=== PATIENT | male | born 1985 | race African-American/Black ===

== ENCOUNTER 2021-04-04 11:12 | Inpatient (IN) | payer OTHER ==
[~2021-04-04] VITALS: Ht 177.8 cm; Wt 109.1 kg
[2021-04-04 12:56] LABS: BASOPHILS % (AUTO) 0.3 % (0.0-2.0); EOSINOPHILS % (AUTO) 4.9 % (1.0-6.0); HEMATOCRIT 48.1 % (41-53); HEMOGLOBIN 16.6 g/dL (13.5-17.5); LYMPHOCYTES # (AUTO) 0.6 K/uL (1.0-4.8); LYMPHOCYTES % (AUTO) 6.6 % (22.0-44.0); MEAN CORPUSCULAR HEMOGLOBIN 30.6 pg (26.0-34.0); MEAN CORPUSCULAR HGB CONC 34.4 G/dL (31.0-37.0); MEAN CORPUSCULAR VOLUME 89 fL (80-100); MONOCYTES # (AUTO) 0.8 K/uL (0.1-1.0); MONOCYTES % (AUTO) 8.3 % (2.0-9.0); NEUTROPHILS # (AUTO) 7.6 K/uL (1.8-7.7); NEUTROPHILS % (AUTO) 79.9 % (40.0-70.0); PLATELET COUNT (AUTO) 413 K/uL (150-450); RED BLOOD CELL COUNT(AUTO) 5.41 MIL/uL (4.50-5.90); RED CELL DISTRIBUTION WIDTH 12.2 % (11.5-14.5)
[2021-04-04 13:02] LABS: ANION GAP 5 mmol/L (8-16); CALCIUM, TOTAL 8.9 mg/dL (8.8-10.5); CARBON DIOXIDE 29 mmol/L (22-29); CHLORIDE 103 mmol/L (98-107); CREATININE 1.17 mg/dL (0.60-1.30); GLOMERULAR FILTR. RATE CALC > 60 mL/min (>60); GLUCOSE,RANDOM 90 mg/dL (70-110); POTASSIUM 3.3 mmol/L (3.5-5.1); SODIUM SERUM 137 mmol/L (136-145); UREA NITROGEN, BLOOD 9 mg/dL (7-18)
[2021-04-04 13:08] LABS: ALANINE AMINOTRANSFERASE 15 U/L (12-78); ALBUMIN 3.8 g/dL (3.4-5.0); ALKALINE PHOSPHATASE 82 U/L (46-116); ASPARTATE AMINOTRANSFERASE 14 U/L (15-37); BILIRUBIN,TOTAL 0.8 mg/dL (0.1-1.0); C-REACTIVE PROTEIN QUANT 5.48 mg/dL (0.00-0.30); TOTAL PROTEIN, SERUM 8.1 g/dL (6.4-8.2)
[2021-04-04 13:18] LABS: LACTIC ACID 0.7 mmol/L (0.4-2.0)
[2021-04-04] MEDS ORDERED: NYSTATIN 500,000 UNITS/5 ML SUSPENSION UDCUP PO ONE (14:00)
[2021-04-04 14:06] LABS: ERYTHROCYTE SEDIMENTATION RATE 22 MM/HR (0-15)
[2021-04-04 14:46] LABS: COVID AG,FIA SOURCE NASAL SWAB
[2021-04-04] MEDS ORDERED: MAGNESIUM HYDROXIDE SUSPENSION 30 ML UDCUP PO PRN (15:45)
[2021-04-04] MEDS ORDERED: ONDANSETRON HCL 4 MG/2 ML VIAL IVP PRN (15:45)
[2021-04-04] MEDS ORDERED: HYDROCODONE/ACETAMINOPHEN 5-325 MG TABLET PO PRN (15:45)
[2021-04-04] MEDS ORDERED: MORPHINE SULFATE 2 MG/ML SYRINGE IVP PRN (15:45)
[2021-04-04] MEDS ORDERED: ZOLPIDEM TARTRATE 5 MG TABLET PO PRN (15:45)
[2021-04-04] MEDS ORDERED: BISACODYL 10 MG RECTAL RECTAL SUPPOSITORY PR PRN (15:45)
[2021-04-04 16:03] VITALS: BP 127/89
[2021-04-04] MEDS: HEPARIN SODIUM,PORCINE 5,000 UNITS/ML VIAL SQ SCH ×2 (16:07→23:14)
[2021-04-04] MEDS: ACETAMINOPHEN 325 MG TABLET PO PRN (16:07)
[2021-04-04] MEDS: ACYCLOVIR 700 MG in DEXTROSE 5%-WATER 100 ML IV SCH (17:44)
[2021-04-04] MEDS: FLUCONAZOLE 200 MG TABLET PO SCH (17:44)
[2021-04-04] MEDS: MAALOX/LIDOCAINE/NYSTATIN SUSP 5 ML ORAL.SYG MM SCH ×2 (17:50→21:04)
[2021-04-04 19:30] VITALS: BP 118/74
[2021-04-04] MEDS: DOCUSATE SODIUM 100 MG CAPSULE PO SCH (21:05)
[2021-04-05] MEDS: ACYCLOVIR 700 MG in DEXTROSE 5%-WATER 100 ML IV SCH ×3 (00:05→18:05)
[2021-04-05 01:56] LABS: MONOTEST NEGATIVE (NEGATIVE); RAPID PLASMA REAGIN NONREACTIVE (NONREACTIVE)
[2021-04-05 04:30] VITALS: BP 123/71
[2021-04-05 06:07] LABS: HIV 1-2 SCREEN 4TH GEN W/RFLX Non Reactive (Non Reactive)
[2021-04-05] MEDS: HEPARIN SODIUM,PORCINE 5,000 UNITS/ML VIAL SQ SCH ×2 (07:58→16:50)
[2021-04-05] MEDS: DOCUSATE SODIUM 100 MG CAPSULE PO SCH ×2 (07:58→20:46)
[2021-04-05] MEDS: PANTOPRAZOLE SODIUM 40 MG DR TABLET PO SCH (07:58)
[2021-04-05] MEDS: MAALOX/LIDOCAINE/NYSTATIN SUSP 5 ML ORAL.SYG MM SCH ×3 (07:58→20:46)
[2021-04-05] MEDS: FLUCONAZOLE 200 MG TABLET PO SCH (08:02)
[2021-04-05 08:42] VITALS: BP 116/69
[2021-04-05 08:54] LABS: BASOPHILS % (AUTO) 0.3 % (0.0-2.0); EOSINOPHILS % (AUTO) 4.4 % (1.0-6.0); HEMATOCRIT 43.1 % (41-53); LYMPHOCYTES # (AUTO) 1.1 K/uL (1.0-4.8); MEAN CORPUSCULAR HEMOGLOBIN 31.1 pg (26.0-34.0); MEAN CORPUSCULAR HGB CONC 34.7 G/dL (31.0-37.0); MEAN CORPUSCULAR VOLUME 90 fL (80-100); MONOCYTES # (AUTO) 0.7 K/uL (0.1-1.0); MONOCYTES % (AUTO) 9.3 % (2.0-9.0); NEUTROPHILS # (AUTO) 5.2 K/uL (1.8-7.7); PLATELET COUNT (AUTO) 414 K/uL (150-450); RED BLOOD CELL COUNT(AUTO) 4.82 MIL/uL (4.50-5.90); RED CELL DISTRIBUTION WIDTH 12.2 % (11.5-14.5)
[2021-04-05] MEDS: ACETAMINOPHEN 325 MG TABLET PO PRN ×3 (09:08→21:27)
[2021-04-05 09:46] LABS: ALANINE AMINOTRANSFERASE 12 U/L (12-78); ALBUMIN 3.3 g/dL (3.4-5.0); ALKALINE PHOSPHATASE 73 U/L (46-116); ANION GAP 8 mmol/L (8-16); ASPARTATE AMINOTRANSFERASE 11 U/L (15-37); BILIRUBIN,TOTAL 0.9 mg/dL (0.1-1.0); C-REACTIVE PROTEIN QUANT 8.53 mg/dL (0.00-0.30); CALCIUM, TOTAL 8.3 mg/dL (8.8-10.5); CARBON DIOXIDE 28 mmol/L (22-29); CHLORIDE 101 mmol/L (98-107); CREATININE 1.15 mg/dL (0.60-1.30); FERRITIN 304 ng/mL (26-388); GLOMERULAR FILTR. RATE CALC > 60 mL/min (>60); GLUCOSE,RANDOM 116 mg/dL (70-110); LACTATE DEHYDROGENASE 337 U/L (85-227); SODIUM SERUM 137 mmol/L (136-145); TOTAL PROTEIN, SERUM 7.4 g/dL (6.4-8.2); UREA NITROGEN, BLOOD 9 mg/dL (7-18)
[2021-04-05 09:49] LABS: POTASSIUM 2.9 mmol/L (3.5-5.1)
[2021-04-05 09:55] LABS: PROTHROMBIN TIME 10.9 SEC (9.4-11.6)
[2021-04-05] MEDS: POTASSIUM CHL 10 MEQ/WATER 50 ML IV PRN ×4 (10:08→12:40)
[2021-04-05 10:16] LABS: D-DIMER 1.23 mg/L FEU (0.00-0.50)
[2021-04-05 16:34] VITALS: BP 117/68
[2021-04-05] MEDS: PredniSONE 20 MG TABLET PO SCH (17:00)
[2021-04-05 20:13] VITALS: BP 106/64
[2021-04-05] MEDS: DOXYCYCLINE HYCLATE 100 MG TABLET PO SCH (20:46)
[2021-04-05] MEDS ORDERED: CLOBETASOL 0.05% 15 GM OINTMENT TP SCH (21:00)
[2021-04-06] MEDS: HEPARIN SODIUM,PORCINE 5,000 UNITS/ML VIAL SQ SCH ×4 (00:30→23:30)
[2021-04-06] MEDS: ACYCLOVIR 700 MG in DEXTROSE 5%-WATER 100 ML IV SCH ×3 (00:30→16:37)
[2021-04-06 04:00] VITALS: BP 122/73
[2021-04-06] MEDS ORDERED: SODIUM CHLORIDE 0.9% 500 ML IV ONE (04:46)
[2021-04-06 08:00] VITALS: BP 130/83
[2021-04-06] MEDS: MAALOX/LIDOCAINE/NYSTATIN SUSP 5 ML ORAL.SYG MM SCH ×4 (08:56→20:45)
[2021-04-06] MEDS: FLUCONAZOLE 200 MG TABLET PO SCH (08:57)
[2021-04-06] MEDS: DOXYCYCLINE HYCLATE 100 MG TABLET PO SCH ×2 (08:57→20:45)
[2021-04-06] MEDS: PANTOPRAZOLE SODIUM 40 MG DR TABLET PO SCH (08:57)
[2021-04-06] MEDS: PredniSONE 20 MG TABLET PO SCH (08:57)
[2021-04-06] MEDS: DOCUSATE SODIUM 100 MG CAPSULE PO SCH ×2 (08:57→21:00)
[2021-04-06] MEDS: POTASSIUM CHLORIDE 20 MEQ ER TABLET PO PRN (17:43)
[2021-04-06] MEDS: CARBOXYMETHYLCELLULOSE SODIUM 0.4 ML OPHTHALMIC SOLUTION [PF] OU SCH ×2 (17:43→23:30)
[2021-04-06] MEDS ORDERED: HYPROMELLOSE 0.5% 15 ML OPHTHALMIC SOLUTION OU SCH (18:00)
[2021-04-06 20:23] VITALS: BP 130/78
[2021-04-06] MEDS: ACETAMINOPHEN 325 MG TABLET PO PRN (20:45)
[2021-04-07] MEDS: ACYCLOVIR 700 MG in DEXTROSE 5%-WATER 100 ML IV SCH ×3 (01:27→16:26)
[2021-04-07 05:17] VITALS: BP 113/79
[2021-04-07] MEDS: CARBOXYMETHYLCELLULOSE SODIUM 0.4 ML OPHTHALMIC SOLUTION [PF] OU SCH ×5 (06:00→20:50)
[2021-04-07 07:06] LABS: HERPES SIMPLEX VIRUS-1 BY PCR Negative (Negative); HERPES SIMPLEX VIRUS-2 BY PCR Negative (Negative)
[2021-04-07] MEDS: MAALOX/LIDOCAINE/NYSTATIN SUSP 5 ML ORAL.SYG MM SCH ×4 (08:54→20:50)
[2021-04-07] MEDS: HEPARIN SODIUM,PORCINE 5,000 UNITS/ML VIAL SQ SCH ×2 (08:54→16:26)
[2021-04-07] MEDS: FLUCONAZOLE 200 MG TABLET PO SCH (08:54)
[2021-04-07] MEDS: PredniSONE 20 MG TABLET PO SCH (08:55)
[2021-04-07] MEDS: DOCUSATE SODIUM 100 MG CAPSULE PO SCH ×2 (08:55→20:50)
[2021-04-07] MEDS: DOXYCYCLINE HYCLATE 100 MG TABLET PO SCH ×2 (08:55→20:50)
[2021-04-07] MEDS: CLOBETASOL 0.05% 60 GM OINTMENT TP SCH ×2 (08:55→20:50)
[2021-04-07] MEDS: PANTOPRAZOLE SODIUM 40 MG DR TABLET PO SCH (09:02)
[2021-04-07 09:04] VITALS: BP 122/76
[2021-04-07 15:46] VITALS: BP 130/82
[2021-04-07] MEDS ORDERED: SODIUM CHLORIDE 0.9% 250 ML IV ONE (16:53)
[2021-04-07 20:19] VITALS: BP 122/76
[2021-04-08] MEDS: ACYCLOVIR 700 MG in DEXTROSE 5%-WATER 100 ML IV SCH ×3 (00:31→17:49)
[2021-04-08] MEDS: HEPARIN SODIUM,PORCINE 5,000 UNITS/ML VIAL SQ SCH ×5 (00:31→23:38)
[2021-04-08 04:44] VITALS: BP 121/75
[2021-04-08] MEDS ORDERED: SODIUM CHLORIDE 0.9% 500 ML IV ONE ×2 (06:01→06:15)
[2021-04-08] MEDS: CARBOXYMETHYLCELLULOSE SODIUM 0.4 ML OPHTHALMIC SOLUTION [PF] OU SCH ×5 (06:17→22:04)
[2021-04-08 07:39] LABS: ANION GAP 6 mmol/L (8-16); C-REACTIVE PROTEIN QUANT 3.05 mg/dL (0.00-0.30); CALCIUM, TOTAL 8.8 mg/dL (8.8-10.5); CARBON DIOXIDE 30 mmol/L (22-29); CHLORIDE 106 mmol/L (98-107); CREATININE 1.13 mg/dL (0.60-1.30); GLOMERULAR FILTR. RATE CALC > 60 mL/min (>60); GLUCOSE,RANDOM 101 mg/dL (70-110); SODIUM SERUM 142 mmol/L (136-145); UREA NITROGEN, BLOOD 11 mg/dL (7-18)
[2021-04-08] MEDS: MAALOX/LIDOCAINE/NYSTATIN SUSP 5 ML ORAL.SYG MM SCH ×4 (08:53→20:35)
[2021-04-08] MEDS: CLOBETASOL 0.05% 60 GM OINTMENT TP SCH ×2 (08:55→20:35)
[2021-04-08] MEDS: PredniSONE 20 MG TABLET PO SCH (08:55)
[2021-04-08] MEDS: DOCUSATE SODIUM 100 MG CAPSULE PO SCH ×2 (08:56→20:35)
[2021-04-08] MEDS: FLUCONAZOLE 200 MG TABLET PO SCH (08:56)
[2021-04-08] MEDS: PANTOPRAZOLE SODIUM 40 MG DR TABLET PO SCH (08:56)
[2021-04-08] MEDS: DOXYCYCLINE HYCLATE 100 MG TABLET PO SCH ×2 (08:56→20:35)
[2021-04-08] MEDS: POTASSIUM CHLORIDE 20 MEQ ER TABLET PO PRN (09:21)
[2021-04-08 18:00] VITALS: BP 119/74
[2021-04-08 19:40] VITALS: BP 130/74
[2021-04-08] MEDS ORDERED: BETAMETHASONE 0.05% TP SCH (21:00)
[2021-04-09] MEDS: ACYCLOVIR 700 MG in DEXTROSE 5%-WATER 100 ML IV SCH ×3 (01:48→16:53)
[2021-04-09 04:05] VITALS: BP 126/79
[2021-04-09 05:06] LABS: HSV 1 TYPE SPECIFIC IGG <0.91 index (0.00-0.90)
[2021-04-09] MEDS: CARBOXYMETHYLCELLULOSE SODIUM 0.4 ML OPHTHALMIC SOLUTION [PF] OU SCH ×5 (06:14→21:26)
[2021-04-09 08:11] VITALS: BP 124/79
[2021-04-09] MEDS: PredniSONE 20 MG TABLET PO SCH (08:40)
[2021-04-09] MEDS: DOCUSATE SODIUM 100 MG CAPSULE PO SCH ×2 (08:40→21:26)
[2021-04-09] MEDS: DOXYCYCLINE HYCLATE 100 MG TABLET PO SCH ×2 (08:41→21:26)
[2021-04-09] MEDS: FLUCONAZOLE 200 MG TABLET PO SCH (08:41)
[2021-04-09] MEDS: PANTOPRAZOLE SODIUM 40 MG DR TABLET PO SCH (08:41)
[2021-04-09] MEDS: HEPARIN SODIUM,PORCINE 5,000 UNITS/ML VIAL SQ SCH ×2 (08:41→16:53)
[2021-04-09] MEDS: CLOBETASOL 0.05% 60 GM OINTMENT TP SCH ×2 (08:42→21:26)
[2021-04-09] MEDS: MAALOX/LIDOCAINE/NYSTATIN SUSP 5 ML ORAL.SYG MM SCH ×4 (08:42→21:27)
[2021-04-09] MEDS ORDERED: ALBUTEROL SULFATE 2.5 MG/0.5 ML NEB SOLUTION NEB PRN (15:15)
[2021-04-09 16:16] VITALS: BP 127/81
[2021-04-09 20:31] VITALS: BP 130/85
[2021-04-10] MEDS: ACYCLOVIR 700 MG in DEXTROSE 5%-WATER 100 ML IV SCH ×3 (00:33→17:34)
[2021-04-10 00:39] VITALS: BP 118/75
[2021-04-10 05:33] VITALS: BP 128/85
[2021-04-10] MEDS: CARBOXYMETHYLCELLULOSE SODIUM 0.4 ML OPHTHALMIC SOLUTION [PF] OU SCH ×5 (05:37→21:13)
[2021-04-10 07:57] VITALS: BP 126/83
[2021-04-10] MEDS: HEPARIN SODIUM,PORCINE 5,000 UNITS/ML VIAL SQ SCH ×3 (08:00→16:00)
[2021-04-10] MEDS: MAALOX/LIDOCAINE/NYSTATIN SUSP 5 ML ORAL.SYG MM SCH ×4 (09:37→21:13)
[2021-04-10] MEDS: FLUCONAZOLE 200 MG TABLET PO SCH (09:38)
[2021-04-10] MEDS: PredniSONE 20 MG TABLET PO SCH (09:38)
[2021-04-10] MEDS: DOCUSATE SODIUM 100 MG CAPSULE PO SCH ×2 (09:38→21:13)
[2021-04-10] MEDS: CLOBETASOL 0.05% 60 GM OINTMENT TP SCH ×2 (09:39→21:00)
[2021-04-10] MEDS: PANTOPRAZOLE SODIUM 40 MG DR TABLET PO SCH (09:39)
[2021-04-10] MEDS: DOXYCYCLINE HYCLATE 100 MG TABLET PO SCH ×2 (09:39→21:13)
[2021-04-10] MEDS ORDERED: SODIUM CHLORIDE 0.9% 500 ML IV ONE (17:35)
[2021-04-10] MEDS ORDERED: BENZOCAINE/MENTHOL LOZENGE PO PRN (18:15)
[2021-04-10] MEDS: CLOTRIMAZOLE 10 MG TROCHE PO SCH (21:13)
[2021-04-11] MEDS: ACYCLOVIR 700 MG in DEXTROSE 5%-WATER 100 ML IV SCH ×3 (00:01→16:43)
[2021-04-11] MEDS: HEPARIN SODIUM,PORCINE 5,000 UNITS/ML VIAL SQ SCH ×3 (00:03→16:43)
[2021-04-11] MEDS: CARBOXYMETHYLCELLULOSE SODIUM 0.4 ML OPHTHALMIC SOLUTION [PF] OU SCH ×5 (06:08→21:54)
[2021-04-11] MEDS: CLOTRIMAZOLE 10 MG TROCHE PO SCH ×5 (06:08→21:53)
[2021-04-11 07:59] VITALS: BP 130/80
[2021-04-11] MEDS: MAALOX/LIDOCAINE/NYSTATIN SUSP 5 ML ORAL.SYG MM SCH ×4 (08:27→20:27)
[2021-04-11] MEDS: DOXYCYCLINE HYCLATE 100 MG TABLET PO SCH ×2 (08:27→20:28)
[2021-04-11] MEDS: DOCUSATE SODIUM 100 MG CAPSULE PO SCH ×2 (08:27→20:28)
[2021-04-11] MEDS: PANTOPRAZOLE SODIUM 40 MG DR TABLET PO SCH (08:27)
[2021-04-11] MEDS: PredniSONE 20 MG TABLET PO SCH (08:28)
[2021-04-11] MEDS: CLOBETASOL 0.05% 60 GM OINTMENT TP SCH ×2 (09:02→20:30)
[2021-04-11] MEDS: FLUCONAZOLE 200 MG TABLET PO SCH (09:54)
[2021-04-11 11:46] VITALS: BP 142/82
[2021-04-11 16:09] VITALS: BP 119/68
[2021-04-11 20:28] VITALS: BP 105/65
[2021-04-12] MEDS: ACYCLOVIR 700 MG in DEXTROSE 5%-WATER 100 ML IV SCH ×3 (00:22→16:57)
[2021-04-12] MEDS: HEPARIN SODIUM,PORCINE 5,000 UNITS/ML VIAL SQ SCH ×3 (00:22→16:57)
[2021-04-12 01:19] VITALS: BP 131/84
[2021-04-12 04:55] VITALS: BP 133/78
[2021-04-12] MEDS: CLOTRIMAZOLE 10 MG TROCHE PO SCH ×5 (05:53→22:37)
[2021-04-12] MEDS: CARBOXYMETHYLCELLULOSE SODIUM 0.4 ML OPHTHALMIC SOLUTION [PF] OU SCH ×5 (05:54→22:37)
[2021-04-12] MEDS: DOCUSATE SODIUM 100 MG CAPSULE PO SCH ×3 (08:20→21:00)
[2021-04-12] MEDS: PredniSONE 20 MG TABLET PO SCH (08:20)
[2021-04-12] MEDS: FLUCONAZOLE 200 MG TABLET PO SCH (08:20)
[2021-04-12] MEDS: DOXYCYCLINE HYCLATE 100 MG TABLET PO SCH (08:20)
[2021-04-12] MEDS: PANTOPRAZOLE SODIUM 40 MG DR TABLET PO SCH (08:20)
[2021-04-12] MEDS: MAALOX/LIDOCAINE/NYSTATIN SUSP 5 ML ORAL.SYG MM SCH ×4 (08:21→20:14)
[2021-04-12 08:25] VITALS: BP 125/79
[2021-04-12] MEDS: CLOBETASOL 0.05% 60 GM OINTMENT TP SCH ×2 (11:25→20:14)
[2021-04-12 16:10] VITALS: BP 123/81
[2021-04-12] MEDS: TRIAMCINOLONE 0.1% DT SCH ×2 (16:58→20:15)
[2021-04-12] MEDS: DENTAL PASTE DT SCH ×2 (16:58→20:15)
[2021-04-12] MEDS ORDERED: REMDESIVIR 200 MG in SODIUM CHLORIDE 0.9% 250 ML IV ONE (18:00)
[2021-04-12] MEDS ORDERED: SODIUM CHLORIDE 0.9% 500 ML IV ONE (18:27)
[2021-04-12 19:25] VITALS: BP 124/80
[2021-04-13] MEDS: HEPARIN SODIUM,PORCINE 5,000 UNITS/ML VIAL SQ SCH ×3 (00:23→16:00)
[2021-04-13] MEDS: ACYCLOVIR 700 MG in DEXTROSE 5%-WATER 100 ML IV SCH ×3 (00:23→19:35)
[2021-04-13 04:25] VITALS: BP 133/88
[2021-04-13] MEDS: CLOTRIMAZOLE 10 MG TROCHE PO SCH ×5 (05:45→22:12)
[2021-04-13] MEDS: CARBOXYMETHYLCELLULOSE SODIUM 0.4 ML OPHTHALMIC SOLUTION [PF] OU SCH ×5 (05:46→22:12)
[2021-04-13 07:11] LABS: ALANINE AMINOTRANSFERASE 19 U/L (12-78); ALBUMIN 2.7 g/dL (3.4-5.0); ALKALINE PHOSPHATASE 99 U/L (46-116); ANION GAP 6 mmol/L (8-16); ASPARTATE AMINOTRANSFERASE 15 U/L (15-37); BILIRUBIN,TOTAL 0.4 mg/dL (0.1-1.0); C-REACTIVE PROTEIN QUANT 0.43 mg/dL (0.00-0.30); CALCIUM, TOTAL 8.7 mg/dL (8.8-10.5); CARBON DIOXIDE 32 mmol/L (22-29); CHLORIDE 106 mmol/L (98-107); CREATININE 1.18 mg/dL (0.60-1.30); FERRITIN 266 ng/mL (26-388); GLOMERULAR FILTR. RATE CALC > 60 mL/min (>60); GLUCOSE,RANDOM 110 mg/dL (70-110); POTASSIUM 3.6 mmol/L (3.5-5.1); SODIUM SERUM 144 mmol/L (136-145); TOTAL PROTEIN, SERUM 6.4 g/dL (6.4-8.2); UREA NITROGEN, BLOOD 14 mg/dL (7-18)
[2021-04-13 08:29] VITALS: BP 141/87
[2021-04-13] MEDS: CLOBETASOL 0.05% 60 GM OINTMENT TP SCH ×2 (09:00→20:44)
[2021-04-13] MEDS: MAALOX/LIDOCAINE/NYSTATIN SUSP 5 ML ORAL.SYG MM SCH ×4 (10:06→20:42)
[2021-04-13] MEDS: PredniSONE 10 MG TABLET PO SCH (10:07)
[2021-04-13] MEDS: FLUCONAZOLE 200 MG TABLET PO SCH (10:07)
[2021-04-13] MEDS: DOCUSATE SODIUM 100 MG CAPSULE PO SCH ×2 (10:07→20:42)
[2021-04-13] MEDS: PANTOPRAZOLE SODIUM 40 MG DR TABLET PO SCH (10:07)
[2021-04-13 16:08] VITALS: BP 135/85
[2021-04-13] MEDS: TRIAMCINOLONE 0.1% DT SCH (20:44)
[2021-04-13] MEDS: DENTAL PASTE DT SCH (20:44)
[2021-04-13 20:45] VITALS: BP 121/66
[2021-04-13] MEDS: REMDESIVIR 100 MG in SODIUM CHLORIDE 0.9% 250 ML IV SCH (20:45)
[2021-04-14] MEDS: HEPARIN SODIUM,PORCINE 5,000 UNITS/ML VIAL SQ SCH ×3 (00:34→17:35)
[2021-04-14] MEDS: ACYCLOVIR 700 MG in DEXTROSE 5%-WATER 100 ML IV SCH ×3 (02:54→19:18)
[2021-04-14 05:26] VITALS: BP 141/85
[2021-04-14] MEDS: CARBOXYMETHYLCELLULOSE SODIUM 0.4 ML OPHTHALMIC SOLUTION [PF] OU SCH ×2 (05:45→09:43)
[2021-04-14] MEDS: CLOTRIMAZOLE 10 MG TROCHE PO SCH ×5 (05:45→22:06)
[2021-04-14 08:18] VITALS: BP 112/65
[2021-04-14] MEDS: TRIAMCINOLONE 0.1% DT SCH ×3 (09:00→20:54)
[2021-04-14] MEDS: DENTAL PASTE DT SCH ×3 (09:00→20:54)
[2021-04-14] MEDS: CLOBETASOL 0.05% 60 GM OINTMENT TP SCH ×2 (09:00→20:54)
[2021-04-14 09:05] LABS: ALANINE AMINOTRANSFERASE 20 U/L (12-78); ALBUMIN 2.7 g/dL (3.4-5.0); ALKALINE PHOSPHATASE 73 U/L (46-116); ANION GAP 3 mmol/L (8-16); ASPARTATE AMINOTRANSFERASE 9 U/L (15-37); BILIRUBIN,TOTAL 0.3 mg/dL (0.1-1.0); CARBON DIOXIDE 34 mmol/L (22-29); CHLORIDE 106 mmol/L (98-107); CREATININE 1.16 mg/dL (0.60-1.30); GLOMERULAR FILTR. RATE CALC > 60 mL/min (>60); GLUCOSE,RANDOM 124 mg/dL (70-110); POTASSIUM 3.5 mmol/L (3.5-5.1); SODIUM SERUM 143 mmol/L (136-145); TOTAL PROTEIN, SERUM 6.4 g/dL (6.4-8.2)
[2021-04-14 09:11] LABS: UREA NITROGEN, BLOOD 13 mg/dL (7-18)
[2021-04-14] MEDS: DOCUSATE SODIUM 100 MG CAPSULE PO SCH ×2 (09:42→20:54)
[2021-04-14] MEDS: MAALOX/LIDOCAINE/NYSTATIN SUSP 5 ML ORAL.SYG MM SCH ×4 (09:42→20:53)
[2021-04-14] MEDS: PredniSONE 10 MG TABLET PO SCH (09:43)
[2021-04-14] MEDS: FLUCONAZOLE 200 MG TABLET PO SCH (09:43)
[2021-04-14] MEDS: PANTOPRAZOLE SODIUM 40 MG DR TABLET PO SCH (09:43)
[2021-04-14] MEDS ORDERED: CARBOXYMETHYLCELLULOSE SODIUM 0.4 ML OPHTHALMIC SOLUTION [PF] OU PRN (14:00)
[2021-04-14 16:51] VITALS: BP 121/70
[2021-04-14] MEDS: REMDESIVIR 100 MG in SODIUM CHLORIDE 0.9% 250 ML IV SCH (17:34)
[2021-04-14 20:05] VITALS: BP 108/73
[2021-04-15] MEDS: HEPARIN SODIUM,PORCINE 5,000 UNITS/ML VIAL SQ SCH ×4 (00:09→17:22)
[2021-04-15] MEDS: ACYCLOVIR 700 MG in DEXTROSE 5%-WATER 100 ML IV SCH ×2 (03:05→13:00)
[2021-04-15 04:58] VITALS: BP 115/71
[2021-04-15] MEDS: CLOTRIMAZOLE 10 MG TROCHE PO SCH ×4 (05:38→17:22)
[2021-04-15 09:00] VITALS: BP 122/64
[2021-04-15] MEDS: MAALOX/LIDOCAINE/NYSTATIN SUSP 5 ML ORAL.SYG MM SCH ×3 (09:05→17:29)
[2021-04-15] MEDS: DOCUSATE SODIUM 100 MG CAPSULE PO SCH (09:06)
[2021-04-15] MEDS: FLUCONAZOLE 200 MG TABLET PO SCH (09:06)
[2021-04-15] MEDS: PANTOPRAZOLE SODIUM 40 MG DR TABLET PO SCH (09:06)
[2021-04-15] MEDS: PredniSONE 10 MG TABLET PO SCH (09:07)
[2021-04-15] MEDS: DENTAL PASTE DT SCH ×2 (11:47→17:29)
[2021-04-15] MEDS: TRIAMCINOLONE 0.1% DT SCH ×2 (11:47→17:29)
[2021-04-15] MEDS: CLOBETASOL 0.05% 60 GM OINTMENT TP SCH (11:48)
[2021-04-17] MEDS ORDERED: PredniSONE 20 MG TABLET PO SCH (09:00)
[2021-04-21] MEDS ORDERED: PredniSONE 10 MG TABLET PO SCH (09:00)
== END 2021-04-15 19:11 | DRG 595 ==
LOC: EMS 11:12 → 6S 14:39
PROVIDERS: ADMIT Internal Medicine; ATTEND Internal Medicine
PROC: XW033E5 Introduction of Remdesivir Anti-infective into Peripheral Vein, Percutaneous Approach, New Technology Group 5 (ICD-10-PCS; principal; 2021-04-12)
DX: L51.1 Stevens-Johnson syndrome (principal); U07.1 COVID-19; B37.0 Candidal stomatitis; E87.6 Hypokalemia; F17.210 Nicotine dependence, cigarettes, uncomplicated; E66.01 Morbid (severe) obesity due to excess calories; R09.02 Hypoxemia; L13.9 Bullous disorder, unspecified; R70.0 Elevated erythrocyte sedimentation rate; R79.82 Elevated C-reactive protein (CRP); J45.909 Unspecified asthma, uncomplicated; K12.1 Other forms of stomatitis; A60.02 Herpesviral infection of other male genital organs; Z68.34 Body mass index [BMI] 34.0-34.9, adult
CPT/HCPCS: 71045; 80048; 80053; 82728; 83520; 83605; 83615; 84132; 84145; 85025; 85379; 85384; 85610; 85651; 85730; 86140; 86308; 86592; 86694; 86695; 86696; 86738; 87040; 87070; 87389; 87529; 87798; 93970; 99285; J0133; J1644; J3480; J7040; J7050; J7060; Q9967; 36415-L1; 36415-TC; J7512; U0003; Z7610